=== PATIENT | female | born 1945 | race African-American/Black ===

== ENCOUNTER 2024-12-21 19:52 | Emergency (ER) | payer MEDICARE, OTHER ==
[~2024-12-21] VITALS: Ht 165.1 cm; Wt 64.0 kg
[~2024-12-21 19:52] MED LIST: ALBU10.7; DILT360C51 MT; FLUT1BLS3 IH; IPRA3AMP9 NEB; LEVO-65 MT; METR-167 MT; MONT-39 MT; POTA-205 MT; PRAV80TA19 MT; PREG100C MT; RAMI10CA75 MT
[2024-12-21 19:55] VITALS: O2SAT 99
[2024-12-21 20:33] LABS: CHLORIDE 105 mEq/L (98-107); POTASSIUM 3.8 mEq/L (3.5-5.1); SODIUM 136 mEq/L (136-145)
[2024-12-21 20:34] LABS: CARBON DIOXIDE 27 mEq/L (21-32)
[2024-12-21 20:39] LABS: CREATININE 1.1 mg/dL (0.6-1.0); GLUCOSE 179 mg/dL (70-105); UREA NITROGEN BLOOD 13 mg/dL (9-23)
[2024-12-21 20:41] LABS: ALANINE AMINOTRANSFERASE 8 IU/L (10-49); ALBUMIN 4.3 g/dL (3.2-4.8); ASPARTATE AMINOTRANSFERASE 17 IU/L (<34); BILIRUBIN DIRECT < 0.1 mg/dL (<=3.0); BILIRUBIN TOTAL 0.3 mg/dL (0.1-1.0)
[2024-12-21 20:50] LABS: BASOPHILS % 0.5 % (0.0-2.0); HEMATOCRIT. 32.9 % (36.0-48.0); HEMOGLOBIN. 11.3 g/dL (12.0-16.0); LYMPHOCYTES % 28.7 % (20.0-50.0); MEAN CORPUSCULAR HEMOGLOBIN 31.1 pg (28.0-32.0); MEAN CORPUSCULAR HGB CONC 34.4 g/dL (31.0-37.0); MEAN CORPUSCULAR VOLUME 90.6 fL (81.0-99.0); MEAN PLATELET VOLUME 8.3 fl (7.4-10.4); MONOCYTES % 6.5 % (2.0-8.0); NEUTROPHILS % 64.3 % (40.0-76.0); PLATELET 311 x1000/uL (130-400); RED BLOOD CELL COUNT 3.63 mill/uL (4.2-5.4); RED CELL DISTRIBUTION WIDTH 14.7 % (11.6-14.6); WHITE BLOOD COUNT 6.3 x1000/uL (4.5-11.0)
[2024-12-21 20:58] LABS: TROPONIN I HIGH SENSITIVITY < 4 ng/L (3.0-34)
[2024-12-21] MEDS: SODIUM CHLORIDE 0.9% 1,000 ML IV ONE (22:13)
[2024-12-22 00:20] VITALS: BP 155/73; PULSE 80; RESP 18; TEMP 36.8; O2SAT 99
== END 2024-12-22 00:41 | disposition left against medical advice (07) ==
LOC: ER 20:07 → EDBEDREQ 23:04 → ENRESERV 23:14 → ER 12-22 00:41
DX: I95.9 Hypotension, unspecified (principal); R19.7 Diarrhea, unspecified; I10 Essential (primary) hypertension; E11.9 Type 2 diabetes mellitus without complications; J45.909 Unspecified asthma, uncomplicated; Z88.0 Allergy status to penicillin; Z79.899 Other long term (current) drug therapy
CPT/HCPCS: 99285; 74176; 96360; 71045; 80076; 80048; 83880; 85025; 84484; 36415; 93005; J7030